=== PATIENT | male | born 1995 | race Caucasian/White ===

== ENCOUNTER 2018-07-20 16:37 | Emergency (ER) | payer SELFPAY ==
[~2018-07-20] VITALS: Ht 188 cm; Wt 110.0 kg
[2018-07-20 16:55] VITALS: BP 117/51
== END 2018-07-20 17:08 | disposition left against medical advice (07) ==
LOC: ER 16:40
DX: S51.851A Open bite of right forearm, initial encounter (principal); W54.0XXA Bitten by dog, initial encounter; Y93.89 Activity, other specified; Y92.89 Other specified places as the place of occurrence of the external cause; Y99.8 Other external cause status
CPT/HCPCS: 99281

== ENCOUNTER 2024-08-29 14:55 | Emergency (ER) | payer MEDICAID ==
[~2024-08-29] VITALS: Ht 188 cm; Wt 113.6 kg
[2024-08-29 16:51] VITALS: BP 160/92; PULSE 17; RESP 17; TEMP 98.7; O2SAT 99
== END 2024-08-29 16:55 | disposition home or self-care (01) ==
LOC: ER 14:56
DX: S67.21XA Crushing injury of right hand, initial encounter (principal); M79.89 Other specified soft tissue disorders; Z88.0 Allergy status to penicillin; Z88.1 Allergy status to other antibiotic agents; W23.0XXA Caught, crushed, jammed, or pinched between moving objects, initial encounter; Y93.89 Activity, other specified; Y92.89 Other specified places as the place of occurrence of the external cause; Y99.8 Other external cause status
CPT/HCPCS: 73130; 99283

== ENCOUNTER 2024-09-11 21:48 | Emergency (ER) | payer MEDICAID ==
[~2024-09-11] VITALS: Ht 188 cm; Wt 114.4 kg
[2024-09-11] MEDS ORDERED: normal saline 1000ml 1,000 ML IV ONE ×2 (22:15→22:30)
[2024-09-11] MEDS ORDERED: ondansetron/PF 4mg/2ml inj IV ONE (22:15)
[2024-09-11 22:29] VITALS: PULSE 98
[2024-09-11 22:41] LABS: BASOPHILS % (AUTO) 0.4 % (0-1); EOSINOPHILS # (AUTO) 0.1 X10'3 (0-0.9); EOSINOPHILS % (AUTO) 1.7 % (0-6); HEMATOCRIT 48.2 % (42.0-52.0); HEMOGLOBIN 16.1 g/dl (14.0-17.9); LYMPHOCYTES # (AUTO) 2.6 X10'3 (1.1-4.8); LYMPHOCYTES % (AUTO) 38.2 % (21-51); MEAN CORPUSCULAR HEMOGLOBIN 29.5 PG (27.0-31.0); MEAN CORPUSCULAR HGB CONC 33.5 g/dL (33.0-36.5); MEAN CORPUSCULAR VOLUME 88.2 FL (78-98); MEAN PLATELET VOLUME 7.1 FL (7.4-10.4); MONOCYTES # (AUTO) 0.7 X10'3 (0-0.9); MONOCYTES % (AUTO) 9.6 % (2-12); NEUTROPHILS # (AUTO) 3.4 X10'3 (1.8-7.7); NEUTROPHILS % (AUTO) 50.1 % (42-75); PLATELET COUNT 279 X10'3 (140-440); RED BLOOD COUNT 5.47 X10'6 (4.70-6.10); RED CELL DISTRIBUTION WIDTH 13.4 % (11.5-14.5); WHITE BLOOD COUNT 6.9 X10'3 (4.5-11.0)
[2024-09-11 22:56] LABS: ALANINE AMINOTRANSFERASE 95 U/L (12-78); ALBUMIN 3.9 G/DL (3.4-5.0); ALBUMIN/GLOBULIN RATIO 1.1 (1.1-1.5); ALKALINE PHOSPHATASE 61 IU/L (46-116); ANION GAP 2 (8-16); ASPARTATE AMINO TRANSFERASE 44 U/L (10-37); BILIRUBIN,TOTAL 0.4 MG/DL (0.1-1.0); BLOOD UREA NITROGEN 16 MG/DL (7-18); BUN/CREATININE RATIO 13.7 (10.0-20.0); CALCIUM 8.8 MG/DL (8.5-10.1); CHLORIDE 103 MMOL/L (99-107); CREATININE 1.17 MG/DL (0.60-1.10); GLUCOSE 98 MG/DL (70-104); LIPASE 100 U/L (16-77); POTASSIUM 3.9 MMOL/L (3.5-5.1); SODIUM 138 MMOL/L (135-145); TOTAL CARBON DIOXIDE 33.4 MMOL/L (24-32); TOTAL PROTEIN 7.4 G/DL (6.4-8.2); eCRCL 107 ML/MIN; eGFR 73 ML/MIN
[2024-09-11 23:11] VITALS: BP 137/87; RESP 16; TEMP 98.2; O2SAT 100
== END 2024-09-11 23:13 | disposition left against medical advice (07) ==
LOC: ER 21:48
DX: A08.4 Viral intestinal infection, unspecified (principal); Z88.0 Allergy status to penicillin; Z88.1 Allergy status to other antibiotic agents
CPT/HCPCS: 80053; 83690; 85025; 99283

== ENCOUNTER 2025-04-08 00:57 | Emergency (ER) | payer MEDICAID ==
[~2025-04-08] VITALS: Ht 188 cm; Wt 250.0 kg
[2025-04-08 01:03] VITALS: BP 138/88; PULSE 119; RESP 18; TEMP 98.6; O2SAT 100
[2025-04-08] MEDS ORDERED: CLIN-118 PO (02:19)
[2025-04-08] MEDS ORDERED: clindamycin 150mg capsule PO ONE (02:20)
--- NOTE | 2025-04-08 02:20 | Physician Documentation ---
History of Present Illness ~ Chief Complaint: Abscess Stated Complaint: ABSCESS Time Seen by MD: 02:14 HPI This is a 30-year-old gentleman who presents for evaluation of a painful red area on his left lower abdomen that began as an ingrown hair. Got progressively larger over the course of several days. The particular palliating or aggravating factors. It often up-to-date and started draining. He does not feel that it fully drained and he would like it to be evaluated for being potential abscess requiring incision and drainage surgically. Did not attempt to treat his symptoms. This is not happened in the past. Tetanus Within 5 Years: No Medication Reconciliation Allergies: Coded Allergies: Penicillins (Verified Allergy, Unknown, 04/08/25) doxycycline (Verified Allergy, Unknown, 04/08/25) Scheduled Clindamycin HCl (Clindamycin HCl), 3 CAP PO Q8H Past Medical History Past Medical History: No Pertinent History Past Surgical History: noncontributory Drug Use: none Lives In: Home Review of Systems ROS 10 point review of systems was performed and unless noted above in HPI is negative for acute process/complaint. Physical Exam Vital Signs: Temperature: 98.6, Source: Oral, Heart Rate: 119, Respiratory Rate: 18, BP: 138/88, Pulse Oximetry: 100, Weight: 250.000 Physical Exam Physical examination: GENERAL: Awake, alert, oriented, GCS 15, no apparent distress, non-toxic appear ing, answers questions, follows commands appropriately. HEENT: Atraumatic, normocephalic, pupils equal, extraocular muscles intact Active gross movements, sclerae anicteric, mucus membranes moist, no stridor. NECK: Midline, no JVD CARDIOVASCULAR: Good skin perfusion without evidence of pallor, mottling. PULMONARY: Nonlabored, symmetric chest rise, no audible wheezing, no accessory muscle use, no respiratory distress, speaking in full sentences. GASTROINTESTINAL: Not distended. NEUROLOGIC: Lucid with normal mental status. Normal facial symmetry. Moves all extremities symmetrically and with purpose. No truncal ataxia. Speech is fluid without evidence of dysarthria or aphasia, no focal deficits appreciated. EXTREMITIES: Acute deformities Skin: warm, dry PSYCHIATRIC: Normal affect, normal insight, normal concentration. Focused exam: [] This is a proximally area of 10 x 6 cm induration with a central ulceration draining small amounts of purulent discharge. No obvious fluctuance. Calor noted. It is located at the belt line just to the left of midline of his lower abdomen. Progress Results/Orders Results/Orders Orders - ROYAL DONALD DO Clindamycin Capsule (Cleocin Capsule) (04/08/25 02:20) Vital Signs 04/08/25 01:03 Temp 98.6 Pulse 119 Resp 18 B/P (MAP) 138/88 Pulse Ox 100 Medical Decision Making Findings Facility Status: ED Holds, E process The plan was discussed with the patient, who demonstrates clear understanding of the plan and is in agreement with the plan unless otherwise noted in the chart. All questions have been answered, all concerns were addressed unless otherwise documented. I was available throughout their ED stay for frequent reassessment and questions. Differential Diagnoses (considered and possible or likely): [Cellulitis, abscess, unlikely to represent necrotizing fasciitis] ??Differential Diagnoses (considered and unlikely, not requiring evaluation currently): [No evidence of traumatic injury] MDM Data Please see [facility] for the following: Independent Historians and external Records Review. Historian: [Patient] Independent Historians: ?[None] Medication Management: [Reviewed medication list] Social History and determinants: [Reviewed] Please see the body of the note for the following: Any independent interpretations of ECG, imaging studies. All vitals signs/haemodynamics, ordered tests were independently reviewed and interpreted by myself. Nursing triage complaint and vitals reviewed, additional nursing notes were reviewed as available and I agree unless otherwise noted or documented in contradiction in the chart Vital Signs: Independently reviewed Labs: Independently interpreted Imaging: Independently interpreted Old Medical Records: Independently reviewed, see [facility] for relevant summary and information Pulse Oximetry: [99%] interpreted as [normal on room air] by me Additionally notably showing: [He is tachycardic on presentation. This could be related to infection versus anxiety versus less likely substance abuse/alcohol intoxication] otherwise hemodynamically stable. Tests considered but not ordered include: [Hematologic workup and imaging has been considered but does not appear to be necessary given clinical nature of diagnosis] Social Determinants of Health Impact: Patient was evaluated in [facility], [facility] [place] to healthcare due to below par ratio of patient to medical providers. [] Comorbid Conditions Impacting Present Evaluation and Care/Treatment: [None reported that with the patient] Management Discussions with other Healthcare Providers: [None] Treatment and Disposition Medication Management (Given or considered): [Initial dose of antibiotics was considered and ordered]. See EMR for details Consideration for Hospitalization/Escalation/Deescalation of Care: Admission for observation has been considered, [however the patient is able to tolerate p.o., their symptoms are controlled, they are able to rely on oral medications, and their chief complaint/diagnosis can be managed on outpatient basis.] ?ED Course:?[I intended to do the bedside ultrasound to evaluate for potential abscess and determine whether there is a need for I&D. However the gentleman seems to have absconded from the emergency department prior to being placed in the room and receiving completion of evaluation. He has medical decision-making capacity, does not require recall. I think the best practice would be to send antibiotics to the pharmacy] ?Shared decision making:?[Patient left before completion I of treatment.] Code status:?FULL Please see the full Electronic Medical Record for full details of nursing documentation, medications list, other records of complete past medical history and conditions, vital signs, laboratory studies, and any radiologic study interpretations by radiologists. Portions of this note were completed using [employer] dictation software and as a result there may exist minor errors in spe lling. I have reviewed elements of past family and social history and agree as included in note. Departure Disposition: 07 LEFT AWOL/ELOPED Impression: Primary Impression: Abdominal wall cellulitis Discharge Instructions: Cellulitis, Adult, [id number] Referrals: NO PRIMARY CARE PROVIDER (PCP) Prescriptions Clindamycin HCl (Clindamycin HCl) 150 Mg Capsule 3 CAP PO Q8H for 10 Days, #90 CAP Prov: ROYAL DONALD DO 04/08/25 Education Educated: Patient Educated regarding: diagnosis, treatment, need for follow up Signature Scribe Signature: No scribe Attestation: This note accurately reflects clinical decisions, work performed by myself, DO SHABANA Daugherty NICHOLAS M DO April 08, 2025 02:20
== END 2025-04-08 02:29 | disposition left against medical advice (07) ==
LOC: ER 00:58
DX: L03.311 Cellulitis of abdominal wall (principal); Z88.0 Allergy status to penicillin; Z88.1 Allergy status to other antibiotic agents
CPT/HCPCS: 99283